=== PATIENT | female | born 1985 | race Caucasian/White ===

== ENCOUNTER 2022-01-26 11:38 | Inpatient (IN) | payer BC ==
[2022-01-26] MEDS ORDERED: BUTORPHANOL 1 MG/ML 1 ML VIAL IV PRN (11:43)
[2022-01-26] MEDS ORDERED: DINOPROSTONE 10 MG INSERT.ER VAGINAL ONE (11:43)
--- NOTE | 2022-01-26 12:59 | P.HPOB ---
History of Present Illness H&P Date: 01/26/22 Chief Complaint: IUP at 40 and 6/7 weeks this is a 37-year-old 2 para 0010 at 40-6/7 with an estimated due date of 01/20. Patient presents for induction of labor secondary to postdates. Amniotic fluid index in the office today was noted to be slightly low at 8. Pa tient denies contractions. Patient denies vaginal bleeding or loss of fluid. Patient has been receiving routine care which has been essentially uncomplicated. Estimated weight in the office done today 8 lbs. 9 oz., Vertex presentation. On bloodwork this patient's blood type of O+, rubella status immune, RPR is nonreactive, hepatitis B surface antigen is negative, HIV is negative she did fail her 1 hour gestational diabetes screen, passed her 3 hour gtt. Group beta strep cultures were negative on 1026. Review of Systems Constitutional: Denies chills, Denies fatigue, Denies fever Ears, nose, mouth and throat: Denies headache Cardiovascular: Reports leg edema Respiratory: Denies dyspnea Gastrointestinal: Denies constipation, Denies diarrhea, Denies nausea, Denies vomiting Genitourinary: Reports Past Medical History Past Medical History: No Reported History History of Any Multi-Drug Resistant Organisms: None Reported Additional Past Surgical History / Comment(s): wisdom teeth Past Anesthesia/Blood Transfusion Reactions: No Reported Reaction Past Psychological History: No Psychological Hx Reported Smoking Status: Never smoker Past Alcohol Use History: None Reported Past Drug Use History: None Reported - Past Family History Mother History Unknown: Yes Family Medical History: Diabetes Mellitus Medications and Allergies Home Medications Medication Instructions Recorded Confirmed Type Vit No.179/Iron/Folic 1 each PO DAILY 01/26/22 01/26/22 History [ Tablet] Allergies Allergy/AdvReac Type Severity Reaction Status Date / Time Penicillins AdvReac Rash/Hives Verified 01/26/22 11:41 Exam Osteopathic Statement: *. No significant issues noted on an osteopathic structural exam other than those noted in the History and Physical/Consult. Vital Signs Temp Resp BP 01/26/22 11:40 97.9 F 14 133/83 Intake and Output 01/25/22 01/26/22 01/26/22 22:59 06:59 14:59 Other: Weight 92.986 kg targeted physical exam is performed on this date in general this is a well- nourished well-developed female in no acute distress. Breathing is noted to be nonlabored, heart has a regular rate and rhythm, abdomen is gravid and appropriate for gestational age. heart tones are noted to be category 1 and she is beth irregularly. On cervical exam she is 70/-2 station vertex presentation Assessment and Plan (1) Post-dates Current Visit: Yes Status: Acute Code(s): O48.0 - POST-TERM SNOMED Code(s): 25512707 (2) AMA (advanced maternal age) primigravida 35+ Current Visit: Yes Status: Acute Code(s): O09.519 - SUPERVISION OF ELDERLY PRIMIGRAVIDA, UNSPECIFIED TRIMESTER SNOMED Code(s): 44264453 Plan: 37-year-old at 40-6/7 weeks presents for induction of labor secondary to post dates. Patient is admitted and Cervidil is placed given unfavorable cervix. Patient is counseled on options for analgesia including Stadol, nitrous, epidural. Patient will consider. We will plan on removal of Cervidil around 1 AM, if necessary Pitocin augmentation will begin following removal of cervidil.
[2022-01-26] MEDS ORDERED: LIDOCAINE 0.5% (PF) 5 MG/ML (50 ML SDV) SQ PRN (15:33)
[2022-01-26] MEDS ORDERED: TERBUTALINE 1 MG/ML VIAL SQ PRN (15:33)
[2022-01-26 16:36] LABS: Basophils # (A) 0.1 k/uL (0-0.2); Basophils % (A) 1 %; Eosinophils % (A) 1 %; HCT 43.9 % (34.0-46.0); HGB 14.2 gm/dL (11.4-16.0); Hypochromasia Moderate; Lymphocytes # (A) 1.4 k/uL (1.0-4.8); Lymphocytes % (A) 19 %; MCH 30.4 pg (25.0-35.0); MCHC 32.4 g/dL (31.0-37.0); MCV 93.6 fL (80.0-100.0); Mean Platelet Volume 9.8; Monocytes # (A) 0.4 k/uL (0-1.0); Monocytes % (A) 6 %; Neutrophils # (A) 5.3 k/uL (1.3-7.7); Neutrophils % (A) 72 %; Platelet Count 192 k/uL (150-450); RBC 4.69 m/uL (3.80-5.40); RDW 13.4 % (11.5-15.5); WBC 7.4 k/uL (3.8-10.6)
[2022-01-26] MEDS: LACTATED RINGERS 1,000 ML IV SCH ×2 (22:19→23:37)
[2022-01-26] MEDS ORDERED: SODIUM CHLORIDE 0.9% 100 ML BAG ONE (22:55)
[2022-01-26] MEDS ORDERED: fentaNYL (PF) 50 MCG/ML 5 ML AMP ONE (22:55)
[2022-01-26] MEDS ORDERED: ROPIVACAINE 5 MG/ML 20 ML AMPULE ONE (22:55)
[2022-01-27] MEDS ORDERED: CITRIC ACID-SODIUM CITRATE 15 ML CUP PO ONE (00:17)
[2022-01-27] MEDS ORDERED: ONDANSETRON 4 MG/2 ML VIAL ONE (00:24)
[2022-01-27] MEDS ORDERED: MORPHINE SULFATE (PF) 0.3 MG/0.3 ML SYR ONE (00:24)
[2022-01-27] MEDS ORDERED: PHENYLEPHRINE-0.9% NACL SYG 1,000 MCG/10 ML SYRINGE ONE (00:24)
[2022-01-27] MEDS ORDERED: diphenhydrAMINE 50 MG/ML 1 ML VIAL IVP PRN (01:10)
[2022-01-27] MEDS ORDERED: NALOXONE 0.4 MG/ML 1 ML VIAL IV PRN ×2 (01:10→06:06)
[2022-01-27] MEDS ORDERED: ZOLPIDEM 5 MG TAB PO PRN (01:10)
[2022-01-27] MEDS ORDERED: ONDANSETRON 4 MG/2 ML VIAL IVP PRN (01:10)
[2022-01-27] MEDS ORDERED: SIMETHICONE 80 MG CHEWABLE PO PRN (01:10)
[2022-01-27] MEDS ORDERED: diphenhydrAMINE 50 MG CAP PO PRN (01:10)
[2022-01-27] MEDS ORDERED: diphenhydrAMINE 25 MG CAP PO PRN (01:10)
[2022-01-27] MEDS ORDERED: METOCLOPRAMIDE 5 MG/ML 2 ML VIAL IVP PRN (01:10)
--- NOTE | 2022-01-27 01:10 | P.OP ---
Date of Procedure: 01/27/22 Preoperative Diagnosis: IUP at 41 and 0, nonreassuring heart tones Postoperative Diagnosis: Same Procedure(s) Performed: Primary low transverse Anesthesia: epidural Surgeon: Radha Garcia Appliance Service Supervisor #1: Noelle Melton Estimated Blood Loss (ml): 510 IV fluids (ml): 1,000 Urine output (ml): 100 (justin colored, head was noted to be low in the pelvis at the time of delivery) Pathology: other (Placenta) Condition: stable Disposition: PACU Indications for Procedure: 37-year-old at 41-0/7 weeks that presented to labor and delivery early this afternoon for Cervidil induction of labor secondary to postdates. Patient had Cervidil placed without difficulty. Operative Findings: Viable male delivered at 0035, weight of 7 lbs. 7 oz., Apgars of 5,8 and 9 at one and 5 and 10 minutes respectively Description of Procedure: Patient was taken Operating suite where epidural anesthesia was found be adequate. She was prepped and draped in normal sterile fashion in the dorsal supine position. Yancey catheter was placed in the laboring suite. A Pfannenstiel skin incision was made the scalpel and carried through the und erlying layer of fascia. Fascia was then incised in the midline and extended laterally. The superior aspect of the fascial incision was then grasped surjit clamps, elevated and underlying rectus muscles dissected off sharply. Attention was then turned to the inferior aspect of the fascial incision which was grasped surjit clamps, elevated and underlying rectus muscles dissected off sharply. The rectus muscles were in the midline the peritoneum was identified and entered. The bladder blade was then inserted into the pelvis, the vesicouterine peritoneum was identified and the bladder flap was created using sharp and blunt dissection. The bladder blade was then reinserted into the pelvis. The hysterotomy incision was made with the scalpel clear fluid was obtained upon entering the uterus. The infant was encountered in an occiput posterior presentation, low in the pelvis. Infant was delivered in the usual fashion. The was then handed off to awaiting RN. Cord blood was then taken. The placenta was then delivered manually. The bladder blade was then inserted into the pelvis once again. The uterus cleared of all clots and debris with a laparotomy sponge. The edges of the hysterotomy incision were then grasped with Allis clamps to delineate the edges. The hysterotomy incision was closed with 0 Vicryl in a running locked fashion. A second imbricating suture was performed. A small defect was noted on the left-hand side therefore 0 Vicryl was used in a running fashion to close this defect. Hemostasis was appreciated after closure. The gutters were cleared of all clots and debris. The hysterotomy incision was inspected hemostasis was appreciated. The peritoneum was then loosely reapproximated. The rectus muscles were inspected and any points of bleeding were made hemostatic with the Bovie. The fascia was then closed with 0 Vicryl in a running fashion from one lateral edge the midline and the other lateral edge the midline. Subcu tissue was irrigated and any points of bleeding were made hemostatic with the Bovie. The subcu tissue was closed 3-0 Vicryl in a running fashion. The skin was then closed with 4-0 Vicryl in a subcu fashion. Steri-Strips and sterile dressings were applied. All counts were noted be correct 2 at the end of the procedure. Patient and tolerated delivery well and are resting comfortably.
[2022-01-27] MEDS ORDERED: OXYTOCIN 30 UNITS/500 ML NS 30 UNIT in SALINE 1 500ML.BAG IV SCH (02:00)
[2022-01-27] MEDS: ACETAMINOPHEN IV (For NPO) 1,000 MG in EMPTY BAG 1 BAG IVPB SCH ×2 (02:40→23:24)
[2022-01-27] MEDS: diphenhydrAMINE 50 MG/ML 1 ML VIAL IVP PRN ×2 (03:01→09:35)
[2022-01-27 03:29] VITALS: RESP 16
[2022-01-27] MEDS: LACTATED RINGERS 1,000 ML IV SCH ×5 (03:45→23:27)
[2022-01-27] MEDS ORDERED: HYDROmorphone 0.5 MG/0.5 ML SYRINGE IVP PRN (06:06)
[2022-01-27] MEDS ORDERED: KETOROLAC 15 MG/ML 1 ML VIAL IVP PRN (06:06)
[2022-01-27] MEDS: ACETAMINOPHEN TAB 500 MG TAB PO SCH ×4 (07:22→23:32)
[2022-01-27] MEDS: IBUPROFEN 600 MG TAB PO SCH ×3 (07:22→23:31)
[2022-01-27] MEDS: IBUPROFEN IV 800 MG in SODIUM CHLORIDE 0.9% 250 ML IV SCH ×2 (07:50→23:27)
[2022-01-27] MEDS: SENNOSIDES-DOCUSATE SODIUM 1 EACH TAB PO SCH ×2 (07:57→23:31)
[2022-01-27] MEDS: PRENATAL VIT-IRON-FOLIC ACID 1 EACH TABLET PO SCH (15:16)
[2022-01-28] MEDS: ACETAMINOPHEN TAB 500 MG TAB PO SCH ×3 (01:48→20:36)
[2022-01-28] MEDS: LACTATED RINGERS 1,000 ML IV SCH ×4 (04:13→20:36)
[2022-01-28] MEDS: IBUPROFEN IV 800 MG in SODIUM CHLORIDE 0.9% 250 ML IV SCH (04:52)
[2022-01-28] MEDS: IBUPROFEN 600 MG TAB PO SCH ×4 (05:09→20:37)
--- NOTE | 2022-01-28 07:06 | P.PN ---
Progress Note - Text Progress Note Date: 01/28/22 (7029) Anesthesia Postop day 1 Subjective: Status Post section with Duramorph. Patient seen and examined. Doing well without complaint. VAS 5 out of 10rest able. No nausea or vomiting. Mild pruritus tolerable.. . Gross lower extremity strength intact. Without apparent anesthetic complications. Objective: Vital signs reviewed Heart: Regular Rate Lungs: Good chest excursion Abdomen: Appears nondistended Assessment: Status post with Duramorph postop day 1 Plan: Continue current care with your medical management. This note was dictated using [employer] software. Please be advised there is a potential for misspellings or errors in flavoring oil filterer.
--- NOTE | 2022-01-28 07:18 | P.PNOBGPC ---
Subjective - Subjective Principal diagnosis: Postop day 1 Interval history: Complaining of some pain in between her Tylenol and ibuprofen dosing. Patient reports: Reports appetite normal, Reports voiding normally, Reports ambulating normally, Denies dizzy ambulation, Denies pain well controlled : doing well, nursing well Objective - Vital Signs Latest vital signs: Vital Signs Temp Pulse Resp BP Pulse Ox 01/28/22 05:00 16 01/28/22 01:00 16 01/28/22 00:00 98.0 F 116 H 16 117/74 99 01/27/22 22:54 16 01/27/22 21:00 16 01/27/22 20:00 98.3 F 88 16 122/70 01/27/22 18:45 98 01/27/22 18:42 16 01/27/22 16:44 16 01/27/22 15:13 98.2 F 96 16 117/66 97 01/27/22 15:06 99 01/27/22 12:00 98.2 F 91 16 128/68 98 01/27/22 11:06 99 01/27/22 08:00 99.0 F 97 16 116/67 95 Intake and Output 01/27/22 01/28/22 01/28/22 22:59 06:59 14:59 Intake Total 1500 Output Total 2000 Balance -500 Intake: IV 1100 Oral 400 Output: Urine 2000 Straight 700 Other: # Voids 1 2 - Exam Extremities: Present: normal. Absent: edema Abdomen: Present: normal appearance, soft, tenderness Incision: Present: normal, dry, intact. Absent: erythematous Uterus: Present: normal, firm Assessment and Plan (1) AMA (advanced maternal age) primigravida 35+ Current Visit: Yes Status: Acute Code(s): O09.519 - SUPERVISION OF ELDERLY PRIMIGRAVIDA, UNSPECIFIED TRIMESTER SNOMED Code(s): 67135861 (2) Post-dates Current Visit: Yes Status: Acute Code(s): O48.0 - POST-TERM SNOMED Code(s): 85429617 (3) Non-reassuring heart rate or rhythm affecting management of fetus Current Visit: Yes Status: Acute Code(s): GGU6500 - SNOMED Code(s): 550942858 (4) S/P section Current Visit: Yes Status: Acute Code(s): Z98.891 - HISTORY OF UTERINE SCAR FROM PREVIOUS SURGERY SNOMED Code(s): 582262712 Plan: Postop day 1 status post primary low transverse section. Discussed scheduled pain medication use and reviewed options available. Otherwise routine care. Probable discharge home tomorrow.
[2022-01-28] MEDS: SENNOSIDES-DOCUSATE SODIUM 1 EACH TAB PO SCH ×2 (08:38→20:32)
[2022-01-28] MEDS: PRENATAL VIT-IRON-FOLIC ACID 1 EACH TABLET PO SCH (08:41)
[2022-01-28 10:05] LABS: Basophils % (A) 0 %; Eosinophils # (A) 0.1 k/uL (0-0.7); Eosinophils % (A) 0 %; HCT 31.4 % (34.0-46.0); Lymphocytes # (A) 1.3 k/uL (1.0-4.8); Lymphocytes % (A) 11 %; MCH 30.2 pg (25.0-35.0); MCHC 33.9 g/dL (31.0-37.0); Mean Platelet Volume 9.2; Monocytes # (A) 0.5 k/uL (0-1.0); Monocytes % (A) 4 %; Neutrophils # (A) 9.5 k/uL (1.3-7.7); Neutrophils % (A) 83 %; Platelet Count 144 k/uL (150-450); RBC 3.52 m/uL (3.80-5.40); RDW 13.5 % (11.5-15.5); WBC 11.4 k/uL (3.8-10.6)
[2022-01-28 10:10] LABS: HGB 10.6 gm/dL (11.4-16.0)
[2022-01-29] MEDS: ACETAMINOPHEN TAB 500 MG TAB PO SCH ×3 (04:59→13:23)
[2022-01-29] MEDS: IBUPROFEN 600 MG TAB PO SCH ×2 (05:09→13:23)
[2022-01-29 08:13] VITALS: BP 121/78; PULSE 76; TEMP 97.9
--- NOTE | 2022-01-29 09:33 | P.DS ---
Providers Date of admission: 01/26/22 11:38 Expected date of discharge: 01/29/22 Attending physician: Radha Garcia Primary care physician: Stated None - Discharge Diagnosis(es) (1) Post-dates Current Visit: Yes Status: Acute (2) AMA (advanced maternal age) primigravida 35+ Current Visit: Yes Status: Acute (3) Non-reassuring heart rate or rhythm affecting management of fetus Current Visit: Yes Status: Acute (4) S/P section Current Visit: Yes Status: Acute Hospital Course: This is a 37-year-old 2 now para 52033 that presented to labor and delivery on 01/26 for induction of labor secondary to postdates. Patient was admitted and Cervidil induction was begun. Patient did start beth regularly after Cervidil was placed. Patient was noted to be 4 cm and did request epidural. Epidural was placed without difficulty by the anesthesia department. Patient had rupture of membranes spontaneous in nature at 2030. Patient had noted variable decelerations after epidural was placed position changes were initiated. Patient was noted to be 8 cm. heart tones were category 2 at that time. Patient subsequently progressed to complete and began pushing. Variables became more frequent and lower and descent into the 80s. At that time decision was made secondary to lack of descent with pushing and heart tones to proceed with . Patient was counseled on nonreassuring heart tones and she stated understanding. After discussion she elected to proceed with primary secondary to nonreassuring heart tones. Patient underwent primary . For full from the please see the operative report. Patient delivered a viable male at 0035, weight of 7 lbs. 7 oz., Apgars of 58 and 9 at one and 5 and 10 minutes respectively. Patient has done well postoperatively. On this postoperative day #2 she is ambulating and voiding without difficulty. She is tolerating a regular diet without nausea or vomiting. States her lochia is minimal. She is breast- feeding without difficulty. She denies concerns and would like discharge home. Patient Condition at Discharge: Good Plan - Discharge Summary Discharge Rx Participant: Yes New Discharge Prescriptions: No Action Vit No.179/Iron/Folic [ Tablet] 1 each PO DAILY Discharge Medication List Vit No.179/Iron/Folic [ Tablet] 1 each PO DAILY 01/26/22 [History] Follow up Appointment(s)/Referral(s): Radha Garcia DO [Doctor of Osteopathic Medicine] - 1 Week Patient Instructions/Handouts: (DC), (GEN) Activity/Diet/Wound Care/Special Instructions: [id number] ibuprofen 600 mg every 6 hours as needed for pain. Patient is counseled on the need for a 2 week routine postoperative check. Bleeding precautions are reviewed. Patient is to call the office should she have any concerns prior to HER-2 week check. No tub baths or intercourse for 6 weeks Discharge Disposition: HOME SELF-CARE
[2022-01-29] MEDS: SENNOSIDES-DOCUSATE SODIUM 1 EACH TAB PO SCH (11:54)
[2022-01-29] MEDS: PRENATAL VIT-IRON-FOLIC ACID 1 EACH TABLET PO SCH (13:24)
== END 2022-01-29 12:40 | disposition home or self-care (01) | DRG 786 ==
LOC: 4FBP 11:38
PROVIDERS: ADMIT Obstetrics & Gynecology Obstetrics; ATTEND Obstetrics & Gynecology Obstetrics
PROC: 4A0HXCZ Measurement of Products of Conception, Cardiac Rate, External Approach (ICD-10-PCS; principal; 2022-01-27 00:30)
PROC: 10D00Z1 Extraction of Products of Conception, Low, Open Approach (ICD-10-PCS; principal; 2022-01-27 00:30)
PROC: 3E0P7VZ Introduction of Hormone into Female Reproductive, Via Natural or Artificial Opening (ICD-10-PCS; principal; 2022-01-27 00:30)
DX: O48.0 Post-term pregnancy (principal); O34.33 Maternal care for cervical incompetence, third trimester; O76 Abnormality in fetal heart rate and rhythm complicating labor and delivery; O99.73 Diseases of the skin and subcutaneous tissue complicating the puerperium; L29.9 Pruritus, unspecified; Z3A.40 40 weeks gestation of pregnancy; Z37.0 Single live birth; Z88.0 Allergy status to penicillin
CPT/HCPCS: 85025; 86850; 86900; 86901

== ENCOUNTER → 2023-04-27 | Outpatient (CLI) | payer BC ==
[2023-04-27 15:52] LABS: Basophils # (A) 0.03 X 10*3/uL (0.00-0.10); Basophils % (A) 0.4 %; Eosinophils # (A) 0.08 X 10*3/uL (0.04-0.35); Eosinophils % (A) 1.2 %; HCT 42.3 % (37.2-46.3); HGB 14.2 g/dL (12.0-15.0); Lymphocytes # (A) 2.03 X 10*3/uL (0.90-5.00); Lymphocytes % (A) 29.9 %; MCH 28.5 pg (27.0-32.0); MCHC 33.6 g/dL (32.0-37.0); MCV 84.9 FL (80.0-97.0); Mean Platelet Volume 10.6 FL (9.5-12.2); Monocytes # (A) 0.42 X 10*3/uL (0.20-1.00); Monocytes % (A) 6.2 %; NRBC Per 100 WBC 0 X 10*3/uL (0.00-0.01); Neutrophils # (A) 4.19 X 10*3/uL (1.80-7.70); Neutrophils % (A) 61.9 %; Platelet Count 241 X 10*3/uL (140-440); RBC 4.98 X 10*6/uL (4.10-5.20); RDW 12.7 % (11.5-14.5); WBC 6.78 X 10*3/uL (4.50-10.00)
== END | disposition home or self-care (01) ==
LOC: LABPAT 10:19
PROVIDERS: ATTEND Obstetrics & Gynecology Obstetrics
DX: Z01.812 Encounter for preprocedural laboratory examination (principal); O02.1 Missed abortion
CPT/HCPCS: 85025; 86850; 86900; 86901

== ENCOUNTER 2023-04-28 10:41 | Day surgery (SDC) | payer BC ==
[~2023-04-28 10:41] MED LIST: Pre Op ABX Message 1 EACH MISC MISCELLANE ONE
[2023-04-28] MEDS ORDERED: ONDANSETRON 4 MG/2 ML VIAL ONE (11:47)
[2023-04-28] MEDS: LACTATED RINGERS 1,000 ML IV ONE (12:01)
[2023-04-28] MEDS: DEXAMETHASONE SOD PHOSPHATE 4 MG/ML 1 ML VIAL IVP ONE (12:02)
[2023-04-28] MEDS: ONDANSETRON 4 MG/2 ML VIAL IVP ONE (12:02)
[2023-04-28] MEDS ORDERED: MIDAZOLAM 2 MG/2 ML VIAL ONE (12:18)
[2023-04-28] MEDS ORDERED: LIDOCAINE 1% INJ 10MG/ML (20 ML MDV) ONE (12:18)
[2023-04-28] MEDS ORDERED: PROPOFOL 10 MG/ML 20 ML VIAL IV ONE (12:18)
[2023-04-28] MEDS ORDERED: fentaNYL (PF) 50 MCG/ML 2 ML AMP ONE (12:18)
[2023-04-28] MEDS ORDERED: IBUPROFEN IV 800 MG in SODIUM CHLORIDE 0.9% 250 ML IV ONE (12:53)
--- NOTE | 2023-04-28 12:56 | P.OP ---
Date of Procedure: 04/28/23 Preoperative Diagnosis: Missed AB Postoperative Diagnosis: Same Procedure(s) Performed: Suction dilation and curettage Anesthesia: MAC Surgeon: Radha Garcia Estimated Blood Loss (ml): 5 IV fluids (ml): 400 Urine output (ml): 100 Pathology: other (Uterine contents) Condition: stable Disposition: PACU Indications for Procedure: Missed AB, 8 weeks Operative Findings: Moderate amount of products of conception obtained, anora kit completed for genetic screening Description of Procedure: Patient was taken back to the operating suite where general anesthesia was obtained without difficulty by the anesthesia department. She was prepped and draped in the normal sterile fashion in the dorsal lithotomy position. A latex free catheter was used to drain the bladder of clear yellow urine. Weighted speculum is placed in the posterior vaginal vault the anterior lip of the cervix was visualized and grasped with a single-tooth tenaculum. The endocervical canal was then serially dilated. An 8 curved suction curette was then placed into the uterus and the uterus was cleared of all contents. Approximately 3 passes were performed, a gentle curettage was performed no further products of conception were appreciated. The suction curette was placed 1 more time within the cavity with no further products of conception appreciated. Uterus was firm after procedure. All counts were noted correct x 2 after all instruments were removed from the vaginal vault. Patient tolerated procedure well and was taken the recovery room awake in stable condition.
[2023-04-28 13:18] VITALS: TEMP 97.2
[2023-04-28 13:51] VITALS: RESP 16
[2023-04-28 14:25] VITALS: BP 108/68; PULSE 86
== END 2023-04-28 14:37 | disposition home or self-care (01) ==
LOC: OR 10:41
PROVIDERS: ATTEND Obstetrics & Gynecology Obstetrics
DX: O02.1 Missed abortion (principal); Z91.040 Latex allergy status; Z88.0 Allergy status to penicillin
CPT/HCPCS: 88305; 59820; J2250; J1100; J2405; J2001; J3010; J2704

== ENCOUNTER 2024-05-20 10:46 | Emergency (ER) | payer BC ==
[2024-05-20 10:52] VITALS: BP 129/74; PULSE 110; RESP 16; TEMP 97.8
--- NOTE | 2024-05-20 11:44 | ED ---
Skin/Abscess/FB HPI - General Source: patient, RN notes reviewed Mode of arrival: ambulatory Limitations: no limitations <Sarai Conn - Last Filed: 05/20/24 11:42> - General Source: patient, RN notes reviewed Mode of arrival: ambulatory Limitations: no limitations <Melyssa Toribio - Last Filed: 05/21/24 10:52> - General Chief complaint: Skin/Abscess/Foreign Body Stated complaint: Urogenital(26 weeks preg) Time Seen by Provider: 05/20/24 11:42 - History of Present Illness Initial comments: Quick [id number] female at 26 weeks gestation presenting for rash x 3 days. Reports diffuse burning rash on vulva and right inguinal area. Denies fever, nausea, vomiting, abdominal pain. (Sarai Conn) 39-year-old approximately 26 weeks gestation female presented to the ER for evaluation of labial rash. Patient reports on Tuesday she noticed to bumps to her right labia. She states they were mildly painful and had a similar appearance of poison shikha. Patient does state she was pulling weeds in the garden on Tuesday as well. She is unsure but states that is possible she was pulling weeds in the garden and went inside to use the bathroom and may have been exposed while wiping herself. No rash elsewhere on body. She has been placing illq-jzm-ofbeemi antibiotic ointment along with 2.5% hydrocortisone steroid cream on lesions without relief. She states today she noticed the lesions increased in size and are hard. She states they feel like a "marble". Patient does report mild radiation of discomfort into her right inguinal area. She states today it was mildly painful to start urination. She denies any abdominal pain, cramping, nausea, vomiting, fevers or chills. Patient is feeling normal movement. Patient is following up with Dr. Garcia. (Melyssa Toribio) - Related Data Home Medications Medication Instructions Recorded Confirmed Vit No.179/Iron/Folic 1 each PO DAILY 01/26/22 04/28/23 [ Tablet] Previous Rx's Medication Instructions Recorded Oseltamivir [Tamiflu] 75 mg PO Q12HR #10 cap 03/29/24 Clindamycin [Cleocin] 300 mg PO Q6H 7 Days #56 cap 05/20/24 Allergies Allergy/AdvReac Type Severity Reaction Status Date / Time Latex, Natural Rubber AdvReac mild Verified 05/20/24 10:52 contact dermatitis Penicillins AdvReac Rash/Hives Verified 05/20/24 10:52 Review of Systems ROS Other: All systems not noted in ROS Statement are negative. <Sarai Conn - Last Filed: 05/20/24 11:42> ROS Other: All systems not noted in ROS Statement are negative. <Melyssa Toribio - Last Filed: 05/21/24 10:52> ROS Statement: Those systems with pertinent positive or pertinent negative responses have been documented in the HPI. Past Medical History Past Medical History: No Reported History Additional Past Medical History / Comment(s): miscarriage History of Any Multi-Drug Resistant Organisms: None Reported Past Surgical History: Section Additional Past Surgical History / Comment(s): wisdom teeth Past Anesthesia/Blood Transfusion Reactions: No Reported Reaction Past Psychological History: No Psychological Hx Reported Smoking Status: Never smoker Past Alcohol Use History: None Reported Past Drug Use History: None Reported - Past Family History Mother History Unknown: Yes Family Medical History: Diabetes Mellitus <Sarai Conn - Last Filed: 05/20/24 11:42> General Exam Limitations: no limitations <Sarai Conn - Last Filed: 05/20/24 11:42> Limitations: no limitations General appearance: alert, in no apparent distress Respiratory exam: Present: normal lung sounds bilaterally. Absent: respiratory distress, wheezes, rales, rhonchi, stridor Cardiovascular Exam: Present: regular rate, normal rhythm, normal heart sounds. Absent: systolic murmur, diastolic murmur, rubs, gallop, clicks GI/Abdominal exam: Present: soft, normal bowel sounds, other ( abdomen). Absent: distended, tenderness, guarding, rebound, rigid External exam: Present: swelling (right superior labia majora and adjacent labia minora. Minimal overlying erythema. No nodule, fluctuance or fluid collection noted. Promince of skin texture but no visible rash.) Neurological exam: Present: alert, oriented X3, CN II-XII intact Skin exam: Present: warm, dry, intact, normal color. Absent: rash <Melyssa Toribio - Last Filed: 05/21/24 10:52> - General Exam Comments Initial Comments: Visual Physical Exam Vital signs reviewed General: Well-appearing, nontoxic, no acute distress. Head: Normocephalic, atraumatic Eyes: PERRLA, EOMI ENT: Airway patent Chest: Nonlabored breathing Skin: No visual rash, normal skin tone Neuro: Alert and oriented 3 Musculoskeletal: No gross abnormalities (Sarai Conn) Course <Melyssa Toribio - Last Filed: 05/21/24 10:52> Vital Signs 05/20/24 10:48 Temperature 97.8 F Pulse Rate 110 H Respiratory 16 Rate Blood Pressure 129/74 O2 Sat by Pulse 99 Oximetry - Reevaluation(s) Reevaluation #1: 05/21/24 10:34 Pelvic inspection chaperoned by Kranthi ALVAREZ. (Melyssa Toribio) Medical Decision Making <Sarai Conn - Last Filed: 05/20/24 11:42> <Melyssa Toribio - Last Filed: 05/21/24 10:52> - Medical Decision Making I completed the quick note portion of this chart signed Sarai Conn PA-C (Sarai Conn) Was pt. sent in by a medical professional or institution ([facility], [facility] [facility] [facility], urgent care, hospital, or snf...) When possible be specific @ -No Did you speak to anyone other than the patient for history (EMS, parent, family, police, friend...)? What history was obtained from this source @ -No Did you review nursing and triage notes (agree or disagree)? Why? @ -I reviewed and agree with nursing and triage notes Were old charts reviewed (outside hosp., previous admission, EMS record, old EKG, old radiological studies, urgent care reports/EKG's, snf records)? Report findings @ -No old charts were reviewed Differential Diagnosis (chest pain, altered mental status, abdominal pain women, abdominal pain men, vaginal bleeding, weakness, fever, dyspnea, syncope, hea dache, dizziness, GI bleed, back pain, seizure, CVA, palpatations, mental health, musculoskeletal)? @ -Bartholian cyst, STD, uterine prolapse, UTI, abscess...this list is not meant to be all inclusive EKG interpreted by me (3pts min.). @ -None done X-rays interpreted by me (1pt min.). @ -None done CT interpreted by me (1pt min.). @ -None done U/S interpreted by me (1pt. min.). @ -None done What testing was considered but not performed or refused? (CT, X-rays, U/S, labs)? Why? @ -None What meds were considered but not given or refused? Why? @ -None Did you discuss the management of the patient with other professionals (professionals i.e. DrAleksey, PA, COLD ROLL CATCHER, lab, RT, psych nurse, addiction social worker, civil lawyer, teacher, community resource officer, geriatric case manager)? Give summary @ -No Was smoking cessation discussed for >3mins.? @ -No Was critical care preformed (if so, how long)? @ -No Were there social determinants of health that impacted care today? How? (Homelessness, low income, unemployed, alcoholism, drug addiction, transportation, low edu. Level, literacy, decrease access to med. care, group home, rehab)? @ -No Was there de-escalation of care discussed even if they declined (Discuss DNR or withdrawal of care, Hospice)? DNR status @ -No What co-morbidities impacted this encounter? (DM, HTN, Smoking, COPD, CAD, Cancer, CVA, ARF, Chemo, Hep., AIDS, mental health diagnosis, sleep apnea, morbid obesity)? @ - Was patient admitted / discharged? Hospital course, mention meds given and route, prescriptions, significant lab abnormalities, going to OR and other pertinent info. @ -Discharged. 39 year old female presenting to the ER for evaluation of labial discomfort. Patient is also 26 week . She is denying any obstetrical complaints. Pelvic inspection showing edema and tenderness noted to superior aspect of right labia majora and adjacent labia minora. Minimal overlying erythema with no visual rash present. There is no fluid collection, nodule or fluctuance to area of concern. Urinalysis unremarkable. heart tones 130- 140 bpm, completed by labor and delivery. Patient will be started on clindamycin, PCN allergy, for infection prophylaxis and instructed to take OTC benadryl. Dosing instruction reviewed with patient. I advised her to follow-up with OB, Dr. Garcia, within the nest 1-2 days for reevaluation. Patient is agreeable with this plan. Strict return parameters discussed. Patient discharged in stable condition. Patient verbally expressed understanding and agreement with care plan. Case discussed with ED attending, Dr. Villagran. Undiagnosed new problem with uncertain prognosis? @ -No Drug Therapy requiring intensive monitoring for toxicity (Heparin, Nitro, Insulin, Cardizem)? @ -No Were any procedures done? @ -No Diagnosis/symptom? @ -Labial pain Acute, or Chronic, or Acute on Chronic? @ -Acute Uncomplicated (without systemic symptoms) or Complicated (systemic symptoms)? @ -Uncomplicated Side effects of treatment? @ -No Exacerbation, Progression, or Severe Exacerbation? @ -No Poses a threat to life or bodily function? How? (Chest pain, USA, SC, pneumonia, PE, COPD, DKA, ARF, appy, cholecystitis, CVA, Diverticulitis, Homicidal, Suicidal, threat to staff... and all critical care pts) @ -No (Melyssa Toribio) - Lab Data Lab Results 05/20/24 Range/Units 13:45 Urine Color Light Yellow Urine Appearance Clear (Clear) Urine pH 6.0 (5.0-8.0) Ur Specific [place] 1.017 (1.001-1.035) Urine Protein Negative (Negative) Urine Glucose (UA) Negative (Negative) Urine Ketones Negative (Negative) Urine Blood Negative (Negative) Urine Nitrite Negative (Negative) Urine Bilirubin Negative (Negative) Urine Urobilinogen <2.0 (<2.0) mg/dL Ur Leukocyte Esterase Negative (Negative) Disposition <Sarai Conn - Last Filed: 05/20/24 11:42> Is patient prescribed a controlled substance at d/c from ED?: No Time of Disposition: 13:59 <Melyssa Toribio - Last Filed: 05/21/24 10:52> Clinical Impression: Labial pain Disposition: HOME SELF-CARE Condition: Stable Additional Instructions: I recommend asvp-sse-[id number] Benadryl. Follow-up closely with in the next 1-2 days. Return to the ER for any new or worsening symptoms. Prescriptions: Clindamycin [Cleocin] 300 mg PO Q6H 7 Days #56 cap Referrals: William Collins DO [Primary Care Provider] - 1-2 days Radha Garcia DO [Family Provider] - 1-2 days
[2024-05-20 13:53] LABS: Appearance,Urine Clear (Clear); Bilirubin,Urine Negative (Negative); Blood,Urine Negative (Negative); Color,Urine Light Yellow; Glucose,Urine (UA) Negative (Negative); Ketones,Urine Negative (Negative); Leukocyte Esterase,Urine Negative (Negative); Nitrite,Urine Negative (Negative); Protein,Urine Negative (Negative); Specific Gravity,Urine 1.017 (1.001-1.035); Urobilinogen,Urine <2.0 mg/dL (<2.0)
== END 2024-05-20 14:18 | disposition home or self-care (01) ==
LOC: EC 10:46
DX: O99.891 Other specified diseases and conditions complicating pregnancy (principal); R10.2 Pelvic and perineal pain; Z91.040 Latex allergy status; Z88.0 Allergy status to penicillin; Z3A.26 26 weeks gestation of pregnancy
CPT/HCPCS: 81003; 99283

== ENCOUNTER 2024-08-20 06:46 | Inpatient (IN) | payer BC ==
[2024-08-20] MEDS ORDERED: miSOPROStoL 200 MCG TAB PO PRN (07:05)
[2024-08-20] MEDS ORDERED: CARBOPROST TROMETHAMINE 250 MCG/ML 1 ML AMP IM PRN (07:05)
[2024-08-20] MEDS ORDERED: OXYTOCIN 10 UNIT/ML 1 ML VIAL IM PRN (07:05)
[2024-08-20] MEDS ORDERED: TRANEXAMIC 1,000 MG/100ML-NACL 1,000 MG in EMPTY BAG 1 BAG IV PRN (07:05)
[2024-08-20] MEDS ORDERED: METHYLERGONOVINE 0.2 MG/ML 1 ML AMP IM PRN (07:05)
[2024-08-20] MEDS: LACTATED RINGERS 1,000 ML IV ONE (07:20)
[2024-08-20 07:41] LABS: Basophils # (A) 0.02 10*3/uL (0.00-0.10); Basophils % (A) 0.2 %; Eosinophils # (A) 0.06 10*3/uL (0.04-0.35); Eosinophils % (A) 0.7 %; HCT 39.5 % (37.2-46.3); HGB 13.6 g/dL (12.0-15.0); Lymphocytes # (A) 1.55 10*3/uL (0.90-5.00); Lymphocytes % (A) 18.6 %; MCH 29.8 pg (27.0-32.0); MCHC 34.4 g/dL (32.0-37.0); MCV 86.6 fL (80.0-97.0); Mean Platelet Volume 10.5 fL (9.5-12.2); Monocytes # (A) 0.52 10*3/uL (0.20-1.00); Monocytes % (A) 6.2 %; Neutrophils # (A) 6.15 10*3/uL (1.80-7.70); Neutrophils % (A) 73.8 %; Platelet Count 188 10*3/uL (140-440); RBC 4.56 10*6/uL (4.10-5.20); WBC 8.34 10*3/uL (4.50-10.00)
[2024-08-20] MEDS: CITRIC ACID-SODIUM CITRATE 15 ML CUP PO ONE (08:04)
--- NOTE | 2024-08-20 09:05 | P.HPOB ---
History of Present Illness H&P Date: 08/20/24 Chief Complaint: IUP at 39 weeks, labor, history of section 39-year-old G2, P1 at 39 3/7 weeks that presents to labor and delivery with complaints of regular painful contractions beginning at 4 AM. Estimated due date of 08/24 by good dating parameters. patient has been receiving routine care which has been essentially uncomplicated. Patient has a prior history of a section and desires repeat. Patient states she has noted good movement denies vaginal bleeding or loss of fluid. On blood work the patient is a blood type of O+, rubella status immune, hepatitis B surface engine negative, HIV negative, RPR nonreactive, group beta strep culture negative. Review of Systems Constitutional: Denies chills, Denies fatigue, Denies fever Ears, nose, mouth and throat: Denies headache Cardiovascular: Reports leg edema Respiratory: Denies dyspnea Gastrointestinal: Denies nausea, Denies vomiting Genitourinary: Reports Past Medical History Past Medical History: No Reported History Additional Past Medical History / Comment(s): miscarriage History of Any Multi-Drug Resistant Organisms: None Reported Past Surgical History: Section Additional Past Surgical History / Comment(s): wisdom teeth Past Anesthesia/Blood Transfusion Reactions: No Reported Reaction Past Psychological History: No Psychological Hx Reported Smoking Status: Never smoker Past Alcohol Use History: None Reported Past Drug Use History: None Reported - Past Family History Mother History Unknown: Yes Family Medical History: Diabetes Mellitus Medications and Allergies Home Medications Medication Instructions Recorded Confirmed Type Vit No.179/Iron/Folic 1 each PO DAILY 01/26/22 08/20/24 History [ Tablet] Allergies Allergy/AdvReac Type Severity Reaction Status Date / Time Latex, Natural Rubber AdvReac mild Verified 08/20/24 07:04 contact dermatitis Penicillins AdvReac Rash/Hives Verified 08/20/24 07:04 Exam Osteopathic Statement: *. No significant issues noted on an osteopathic structural exam other than those noted in the History and Physical/Consult. Intake and Output 08/19/24 08/20/24 08/20/24 22:59 06:59 14:59 Other: Weight 97.976 kg Targeted physical exam is performed this date in general is well-nourished well- developed in no acute distress, breathing is nonlabored, heart has a regular rate and rhythm, abdomen is gravid, heart tones are noted to be category 1, she is beth every 2 to 3 minutes, on cervical exam she is 1-2/90/-3 bulging bag of water is appreciated per RN. Results Result Diagrams: 08/20/24 07:25 Assessment and Plan (1) Term Current Visit: Yes Status: Acute Code(s): Z34.90 - ENCNTR FOR SUPRVSN OF NORMAL , UNSP, UNSP TRIMESTER SNOMED Code(s): 05782867 (2) AMA (advanced maternal age) multigravida 35+ Current Visit: Yes Status: Acute Code(s): O09.529 - SUPERVISION OF ELDERLY MULTIGRAVIDA, UNSPECIFIED TRIMESTER SNOMED Code(s): 913703603 (3) History of section Current Visit: Yes Status: Acute Code(s): Z98.891 - HISTORY OF UTERINE SCAR FROM PREVIOUS SURGERY SNOMED Code(s): 678831018 Plan: 39-year-old G2, P1 at 39-3/7 weeks presents for repeat section. Patient states she began beth around 4 AM with uncomfortable regular contractions.. Patient presented to labor and delivery was noted to be 1-2 90-2 with a bulging bag of water. Patient was scheduled for repeat section this afternoon. Patient does desire tubal ligation. Patient was counseled on salpingectomy and permanence of procedure. Patient states understanding and wishes to proceed as she is done with childbearing.
[2024-08-20] MEDS: OXYTOCIN 30 UNITS/500 ML NS 30 UNIT in SALINE 1 500ML.BAG IV SCH (09:10)
[2024-08-20] MEDS ORDERED: diphenhydrAMINE 50 MG CAP PO PRN (09:24)
[2024-08-20] MEDS ORDERED: ONDANSETRON 4 MG/2 ML VIAL IVP PRN (09:24)
[2024-08-20] MEDS ORDERED: diphenhydrAMINE 25 MG CAP PO PRN (09:24)
[2024-08-20] MEDS ORDERED: diphenhydrAMINE 50 MG/ML 1 ML VIAL IVP PRN ×2 (09:24)
[2024-08-20] MEDS ORDERED: METOCLOPRAMIDE 5 MG/ML 2 ML VIAL IVP PRN (09:24)
[2024-08-20] MEDS ORDERED: NALOXONE 0.4 MG/ML 1 ML VIAL IV PRN (09:24)
[2024-08-20] MEDS ORDERED: ZOLPIDEM 5 MG TAB PO PRN (09:24)
[2024-08-20] MEDS: ACETAMINOPHEN IV (For NPO) 1,000 MG in EMPTY BAG 1 BAG IVPB ONE (09:59)
[2024-08-20] MEDS: LACTATED RINGERS 1,000 ML IV SCH (10:00)
[2024-08-20] MEDS ORDERED: KETOROLAC 15 MG/ML 1 ML VIAL IVP SCH (12:00)
[2024-08-20] MEDS: IBUPROFEN IV 800 MG in SODIUM CHLORIDE 0.9% 250 ML IV ONE (15:45)
[2024-08-20] MEDS: ACETAMINOPHEN TAB 500 MG TAB PO SCH (19:46)
[2024-08-20] MEDS: SENNOSIDES-DOCUSATE SODIUM 1 EACH TAB PO SCH (19:46)
[2024-08-21] MEDS: IBUPROFEN 800 MG TAB PO SCH (01:21)
[2024-08-21 06:31] LABS: Basophils # (A) 0.03 10*3/uL (0.00-0.10); Basophils % (A) 0.3 %; Eosinophils # (A) 0.05 10*3/uL (0.04-0.35); Eosinophils % (A) 0.5 %; HCT 34.4 % (37.2-46.3); HGB 11.4 g/dL (12.0-15.0); Lymphocytes # (A) 1.31 10*3/uL (0.90-5.00); Lymphocytes % (A) 13.5 %; MCH 28.9 pg (27.0-32.0); MCHC 33.1 g/dL (32.0-37.0); MCV 87.3 fL (80.0-97.0); Mean Platelet Volume 10.3 fL (9.5-12.2); Monocytes # (A) 0.61 10*3/uL (0.20-1.00); Monocytes % (A) 6.3 %; Neutrophils # (A) 7.63 10*3/uL (1.80-7.70); Neutrophils % (A) 78.9 %; Platelet Count 151 10*3/uL (140-440); RBC 3.94 10*6/uL (4.10-5.20); WBC 9.68 10*3/uL (4.50-10.00)
--- NOTE | 2024-08-21 07:09 | P.PN ---
Progress Note - Text Progress Note Date: 08/21/24 (341) Anesthesia Postop day 1 Subjective: Status Post section with Duramorph. Patient seen and examined. Doing well without complaint. VAS 3 out of 10. No nausea vomiting or pruritus. Denies fever. Gross lower extremity strength intact. Without apparent anesthetic complications. Objective: Vital signs reviewed Heart: Regular Rate Lungs: Good chest excursion Abdomen: Appears nondistended Assessment: Status post section with Duramorph postop day 1 Plan: 1. Continue current care with your medical management. Anticipated end to the duration of the Duramorph around surgery time today. You may see increased pain needs around this time. 2. This note was dictated using [employer] software. Please be advised there is a potential for misspellings or errors in contract post office clerk.
--- NOTE | 2024-08-21 08:25 | P.PNOBGPC ---
Subjective - Subjective Principal diagnosis: Postop day 1, repeat section Interval history: Overall patient is doing well this morning. She is ambulating without difficulty. She is tolerating a regular diet without nausea or vomiting. We are awaiting spontaneous void. Patient reports: Reports appetite normal, Reports pain well controlled, Reports ambulating normally : doing well Objective - Vital Signs Latest vital signs: Vital Signs Temp Pulse Resp BP Pulse Ox 08/21/24 08:00 98.7 F 92 15 118/71 08/21/24 04:02 98.6 F 91 18 107/70 97 08/21/24 00:00 98.0 F 87 18 111/70 97 08/20/24 19:52 98.2 F 95 18 110/69 99 08/20/24 16:00 97.8 F 86 16 105/64 97 08/20/24 11:03 81 16 102/65 99 08/20/24 10:48 74 16 102/66 99 08/20/24 10:33 97.1 F L 73 16 108/64 98 08/20/24 10:18 72 16 106/62 98 08/20/24 10:03 84 16 108/57 97 08/20/24 09:48 84 16 113/60 97 08/20/24 09:33 71 16 121/62 97 08/20/24 09:18 99 16 124/56 97 08/20/24 09:03 97.1 F L 86 16 103/53 96 Intake and Output 08/20/24 08/21/24 08/21/24 22:59 06:59 14:59 Intake Total 1950 Output Total 750 1400 Balance -750 550 Intake: IV 1250 Oral 700 Output: Urine 750 1400 Straight 1400 - Exam Extremities: Present: normal, edema Abdomen: Present: normal appearance, soft Incision: Present: normal, dry, intact Uterus: Present: normal, firm - Labs Labs: Abnormal Lab Results - Last 24 Hours (Table) 08/21/24 Range/Units 05:51 RBC 3.94 L (4.10-5.20) 10*6/uL Hgb 11.4 L (12.0-15.0) g/dL Hct 34.4 L (37.2-46.3) % Immature Gran # 0.05 H (0.00-0.04) 10*3/uL Assessment and Plan (1) Term Current Visit: Yes Status: Acute Code(s): Z34.90 - ENCNTR FOR SUPRVSN OF NORMAL , UNSP, UNSP TRIMESTER SNOMED Code(s): 88054125 (2) AMA (advanced maternal age) multigravida 35+ Current Visit: Yes Status: Acute Code(s): O09.529 - SUPERVISION OF ELDERLY MULTIGRAVIDA, UNSPECIFIED TRIMESTER SNOMED Code(s): 772816058 (3) History of section Current Visit: Yes Status: Acute Code(s): Z98.891 - HISTORY OF UTERINE SCAR FROM PREVIOUS SURGERY SNOMED Code(s): 024497846 (4) S/P section Current Visit: No Status: Acute Code(s): Z98.891 - HISTORY OF UTERINE SCAR FROM PREVIOUS SURGERY SNOMED Code(s): 815142651 Plan: Doing well postoperatively, await spontaneous void. Continue routine postoperative care with anticipation of discharge home tomorrow
--- NOTE | 2024-08-21 08:57 | P.OP ---
Date of Procedure: 08/20/24 Preoperative Diagnosis: IUP at 39-3/7 weeks, history of section x 1 desires repeat, advanced maternal age Postoperative Diagnosis: Same Procedure(s) Performed: Repeat section with bilateral salpingectomy Anesthesia: spinal Surgeon: Radha Garcia Charge Machine Operator #1: Alexander Taylor Estimated Blood Loss (ml): 535 IV fluids (ml): 1,000 Urine output (ml): 200 Pathology: none sent Condition: stable Disposition: observation Indications for Procedure: History of section x 1, desires repeat Operative Findings: Viable female delivered at 834, weight of 8 pounds 6 ounces, Apgars of 8 and 9 at 1 and 5 minutes respectively. Normal uterus tubes and ovaries were appreciated. Bilateral salpingectomy performed Description of Procedure: The patient was prepped and draped in the usual fashion after spinal anesthesia was administered by the anesthesia department. A Pfannenstiel incision was made and extended of the abdominal cavity without difficulty. The bladder peritoneum was elevated and incised and reflected distally. A 2 cm incision was made in the transverse plane of the lower uterine segment to enter the uterus at which time clear fluid was noted. The incision was extended in both directions bluntly. The head was encountered within the field and delivered up and through the incision where the nose and mouth were thoroughly suctioned. Remainder of the was delivered onto the surgical field where the cord was doubly clamped, cut, and the was passed for resuscitative measures with weight and Apgars as noted above. The placenta was delivered manually, intact, and was grossly normal with a grossly normal three-vessel cord. The uterus was exteriorized and the interior cavity of the uterus swept of any remaining placental and membranous fragments with a laparotomy sponge. The margins of the incision were grasped with Peng clamps and the incision closed in a running locked fashion from 1 lateral edge to the other. The right fallopian tube was elevated and the LigaSure was used to transect the mesosalpinx to the cornual edge. This was then repeated on the opposite side. Hemostasis was noted throughout. Hysterotomy incision was inspected small amount of bleeding was appreciated on the left lateral edge therefore 2 uhcqhx-rv-bfwss sutures were used to obtain hemostasis. Any small points of bleeding were then made hemostatic with the Bovie. Once hemostasis was achieved, the posterior cul-de-sac was suctioned with a guard and the uterine and ovarian findings are as noted above. The uterus was replaced within the abdominal cavity and the gutters swept of any remaining blood fluid or clot. The incision was again reexamined and hemostasis was noted to be excellent. Surgicel powder was then placed along the bladder flap as a small amount of bleeding was appreciated. Any small point of bleeding were made hemostatic with the Bovie. Once hemostasis was achieved the parietal peritoneum was loosely reapproximated. The layer of muscles were examined and made hemostatic with the Bovie. Attention was then turned to the fascia which was closed with 0 Vicryl in a running fashion from 1 lateral edge to the other. The subcutaneous tissues were irrigated, made hemostatic with the Bovie, and reapproximated with a running stitch of 30 Vicryl. The skin was reapproximated with 4-0 Vicryl. Estimated blood loss for the case was approximately 535 mL. All sponge instrument and needle counts are correct. There were no complications. The patient tolerated the procedure well and proceeded to the recovery room in stable condition. Both mother and infant are resting comfortably in recovery. A physician surgical services director was utilized for the entire procedure due to the need for tissue to retraction, dissection of vital structures, prevention and management of blood loss and reduction in overall operative and anesthetic time as is the standard of care.
[2024-08-21] MEDS: SIMETHICONE 80 MG CHEWABLE PO PRN (11:41)
[2024-08-21] MEDS ORDERED: IBUPROFEN 800 MG TAB PO SCH (12:00)
[2024-08-22 00:08] VITALS: TEMP 98
[2024-08-22 08:28] VITALS: BP 123/80; PULSE 78; RESP 16
--- NOTE | 2024-08-22 08:35 | P.DS ---
Providers Date of admission: 08/20/24 06:46 Expected date of discharge: 08/22/24 Attending physician: Radha Garcia Primary care physician: William Collins - Discharge Diagnosis(es) (1) Term Current Visit: Yes Status: Acute (2) AMA (advanced maternal age) multigravida 35+ Current Visit: Yes Status: Acute (3) History of section Current Visit: Yes Status: Acute (4) S/P section Current Visit: No Status: Acute Hospital Course: This is a 39-year-old 6 now para 2-0-4-2 that presented to labor and delivery at 3 9-3/7 weeks with complaints of regular painful contractions that began around 4 AM. Estimated due date of 08/24 based on good dating parameters. Patient notes good movement, denies rupture of membranes. Patient has a prior history of a section and desires repeat with tubal ligation. Patient was admitted to labor and delivery anesthesia was notified and she was taken back to the operating room for repeat section with bilateral salpingectomy. For full details on the procedure please see the dictated operative report. Patient delivered a viable female infant at 834, weight of 8 pounds 6 ounces, Apgars of 8 and 9 at 1 and 5 minutes respectively. Patient's postoperative course has been uneventful. On this postoperative day #2 she is ambulating and voiding without difficulty. She is tolerating a regular diet without nausea or vomiting. She states her pain is well-controlled. Lochia is noted to be minimal to moderate. She denies concerns and would like discharge home. Patient Condition at Discharge: Good Plan - Discharge Summary New Discharge Prescriptions: No Action Vit No.179/Iron/Folic [ Tablet] 1 each PO DAILY Discharge Medication List Vit No.179/Iron/Folic [ Tablet] 1 each PO DAILY 01/26/22 [History] Follow up Appointment(s)/Referral(s): Radha Garcia DO [Doctor of Osteopathic Medicine] - 09/03/24 1:30 pm (10/02/2024 @1:00PM) Patient Instructions/Handouts: (DC), (GEN) Activity/Diet/Wound Care/Special Instructions: No tub baths or intercourse until 6 weeks postop . Rvxt-tjo-olpzjba ibuprofen 600 mg or 3 tablets every 6 hours as needed for pain. Routine postoperative check at 2 weeks. Incision care is discussed. Patient to call with any concerns prior to her postop appointment. Discharge Disposition: HOME SELF-CARE
== END 2024-08-22 11:30 | disposition home or self-care (01) | DRG 785 ==
LOC: 4FBP 06:46
PROVIDERS: ADMIT Obstetrics & Gynecology Obstetrics; ATTEND Obstetrics & Gynecology Obstetrics
PROC: 0UB70ZZ Excision of Bilateral Fallopian Tubes, Open Approach (ICD-10-PCS; 2024-08-20)
PROC: 10D00Z1 Extraction of Products of Conception, Low, Open Approach (ICD-10-PCS; principal; 2024-08-20 08:30)
DX: O34.211 Maternal care for low transverse scar from previous cesarean delivery (principal); Z30.2 Encounter for sterilization; Z37.0 Single live birth; Z3A.39 39 weeks gestation of pregnancy; Z88.0 Allergy status to penicillin; Z91.040 Latex allergy status
CPT/HCPCS: 85025; 86850; 86900; 86901; 88302